=== PATIENT | male | born 1990 | race Caucasian/White ===

== ENCOUNTER 2018-01-04 04:08 | Emergency (ER) | payer SELFPAY ==
[~2018-01-04] VITALS: Ht 172.7 cm; Wt 68.0 kg
[2018-01-04 04:09] VITALS: BP 161/94
[2018-01-04] MEDS ORDERED: ONDANSETRON 4 MG TAB.RAPDIS SL ONE (04:30)
[2018-01-04] MEDS ORDERED: ACETAMINOPHEN ES 500 MG TABLET PO ONE (04:30)
[2018-01-04] MEDS ORDERED: ACETAMINOPHEN ES 500 MG TABLET ONE (04:33)
[2018-01-04] MEDS ORDERED: ONDANSETRON 4 MG TAB.RAPDIS ONE (04:34)
== END 2018-01-04 04:40 | disposition home or self-care (01) ==
LOC: ER 04:11
DX: S09.90XA Unspecified injury of head, initial encounter (principal); F10.10 Alcohol abuse, uncomplicated; V89.2XXA Person injured in unspecified motor-vehicle accident, traffic, initial encounter; Y93.89 Activity, other specified; Y92.89 Other specified places as the place of occurrence of the external cause; Y99.8 Other external cause status
CPT/HCPCS: 99283; A4606; Q0162; Z7610